=== PATIENT | male | born 1990 | race Caucasian/White ===

== ENCOUNTER 2022-02-02 08:09 | Emergency (ER) | payer MEDICAID ==
[~2022-02-02] VITALS: Ht 182.9 cm; Wt 72.7 kg
[2022-02-02 08:22] VITALS: BP 128/74
[2022-02-02] MEDS ORDERED: PENI500T2 PO (09:34)
[2022-02-02] MEDS ORDERED: IBUP-1984 PO (09:34)
== END 2022-02-02 09:58 | disposition home or self-care (01) ==
LOC: ER 08:10
DX: K08.89 Other specified disorders of teeth and supporting structures (principal); R22.0 Localized swelling, mass and lump, head; K05.319 Chronic periodontitis, localized, unspecified severity; K02.9 Dental caries, unspecified; Z79.2 Long term (current) use of antibiotics; Z79.899 Other long term (current) drug therapy; Z91.041 Radiographic dye allergy status
CPT/HCPCS: 99283

== ENCOUNTER 2023-02-22 23:54 | Emergency (ER) | payer MEDICAID, OTHER ==
[~2023-02-22] VITALS: Ht 182.9 cm; Wt 72.7 kg
[2023-02-23 00:31] VITALS: BP 126/83
[2023-02-24] MEDS ORDERED: CLIN300C54 PO (17:10)
== END 2023-02-23 01:21 | disposition home or self-care (01) ==
LOC: ER 23:55
DX: R51.9 Headache, unspecified (principal); R11.0 Nausea; Z88.8 Allergy status to other drugs, medicaments and biological substances
CPT/HCPCS: 99282

== ENCOUNTER 2023-02-24 15:56 | Emergency (ER) | payer OTHER ==
[~2023-02-24] VITALS: Ht 182.9 cm; Wt 82.5 kg
[2023-02-24 16:10] VITALS: BP 109/78
[2023-02-24] MEDS ORDERED: CLIN300C54 PO (17:10)
== END 2023-02-24 17:34 | disposition home or self-care (01) ==
LOC: ER 15:57
DX: K04.7 Periapical abscess without sinus (principal); Z79.899 Other long term (current) drug therapy
CPT/HCPCS: 99283

== ENCOUNTER 2023-12-26 21:57 | Emergency (ER) | payer MEDICAID ==
[~2023-12-26] VITALS: Ht 182.9 cm; Wt 75.0 kg
[2023-12-26 22:10] VITALS: TEMP 98.2
[2023-12-27] MEDS ORDERED: CLIN-142 PO (02:27)
[2023-12-27 02:43] VITALS: BP 120/74; PULSE 68; RESP 14; O2SAT 98
== END 2023-12-27 02:52 | disposition home or self-care (01) ==
LOC: ER 21:57
DX: K04.7 Periapical abscess without sinus (principal); K08.89 Other specified disorders of teeth and supporting structures; Z79.2 Long term (current) use of antibiotics
CPT/HCPCS: 99283; A6266